=== PATIENT | female | born 1975 | race Caucasian/White ===

== ENCOUNTER 2020-11-29 10:17 | Day surgery (SDC) | payer OTHER ==
[~2020-11-29] VITALS: Ht 147.3 cm; Wt 55.9 kg
[2020-11-29] MEDS ORDERED: EPINEPHRINE 1 MG/ML, 1ML ONE ×2 (10:19→10:32)
[2020-11-29] MEDS ORDERED: BUPIVACAINE/PF 0.5% ONE ×2 (10:19→10:32)
[2020-11-29] MEDS ORDERED: SILVER SULF. CRM 1% , 25GM ONE ×2 (10:19→10:31)
[2020-11-29] MEDS ORDERED: LIDOCAINE JELLY 2%, 30GM ONE (10:20)
[2020-11-29] MEDS ORDERED: CHLORHEXIDINE 15 ML UDC ONE (10:39)
[2020-11-29 10:40] VITALS: BP 112/77
[2020-11-29 10:52] LABS: HCG UR SG 1.015 (1.003-1.030)
[2020-11-29] MEDS ORDERED: MIDAZOLAM 1 MG/ML, 2ML ONE (10:55)
[2020-11-29] MEDS ORDERED: FENTANYL PF 250 MCG/5ML ONE (10:58)
[2020-11-29] MEDS ORDERED: PROPOFOL 10 MG/ML, 20ML ONE (10:58)
[2020-11-29] MEDS ORDERED: SUCCINYLCHOLINE 20 MG/ML, 10ML ONE (10:59)
[2020-11-29] MEDS ORDERED: LACTATED RINGERS 1,000 ML IV SCH (11:00)
[2020-11-29] MEDS ORDERED: CHLORHEXIDINE 15 ML UDC PO ONE (11:00)
[2020-11-29] MEDS ORDERED: ONDANSETRON 2MG/ML, 2ML ONE (11:52)
[2020-11-29] MEDS ORDERED: DEXAMETHASONE 4 MG/ML, 1ML ONE (11:52)
[2020-11-29] MEDS ORDERED: CEFOTETAN 2 GM ONE (11:52)
[2020-11-29] MEDS ORDERED: ROCURONIUM 10 MG/ML,10ML ONE (11:52)
[2020-11-29] MEDS ORDERED: OXYC1TAB14 PO (12:26)
[2020-11-29] MEDS ORDERED: FENTANYL PF 100 MCG/2ML ONE (12:51)
[2020-11-29] MEDS ORDERED: OXYcodone 5 MG/5 ML ORAL.SOL UDC ONE (12:51)
[2020-11-29] MEDS ORDERED: ACETAMINOPHEN 650 MG/20.3 ML UDC ONE (12:51)
[2020-11-29] MEDS ORDERED: DIAZEPAM 5 MG/ML, 2ML IVPush PRN (13:00)
[2020-11-29] MEDS ORDERED: FENTANYL PF 100 MCG/2ML IV PRN (13:00)
[2020-11-29] MEDS ORDERED: LABETALOL 5MG/ML, 20ML IV PRN (13:00)
[2020-11-29] MEDS ORDERED: hydrALAzine 20 MG/ML, 1ML IV PRN (13:00)
[2020-11-29] MEDS ORDERED: EPHEDRINE 50 MG/ML, 1ML IVPush PRN (13:00)
[2020-11-29] MEDS ORDERED: ONDANSETRON 2MG/ML, 2ML IVPush PRN (13:00)
[2020-11-29] MEDS ORDERED: HYDROmorphone 1 MG/ML, 1ML INJ IVPush PRN (13:00)
[2020-11-29] MEDS ORDERED: PROMETHAZINE 12.5 MG SUPP PR PRN (13:00)
[2020-11-29] MEDS ORDERED: MIDAZOLAM 1 MG/ML, 2ML IV PRN (13:00)
[2020-11-29] MEDS ORDERED: ALBUTEROL SULFATE 2.5 MG/3 ML NPPB PRN (13:00)
[2020-11-29] MEDS ORDERED: LORazepam 2 MG/ML, 1ML IVPush PRN (13:00)
[2020-11-29] MEDS ORDERED: DIPHENHYDRAMINE 50 MG/ML, 1ML IVPush PRN ×2 (13:00)
[2020-11-29] MEDS ORDERED: OXYcodone 5 MG/5 ML ORAL.SOL UDC PO PRN (13:00)
[2020-11-29] MEDS ORDERED: PROMETHAZINE 25 MG/ML, 1ML IVPush PRN (13:00)
[2020-11-29] MEDS ORDERED: ACETAMINOPHEN 325 MG TABLET PO PRN (13:00)
[2020-11-29] MEDS ORDERED: MEPERIDINE/PF 25MG/0.5ML IVPush PRN (13:00)
[2020-11-29] MEDS ORDERED: MEPERIDINE/PF 25MG/ML,1ML ONE (13:18)
== END 2020-11-29 15:06 | disposition home or self-care (01) ==
LOC: OUT 10:17
PROVIDERS: ATTEND Surgery
DX: K64.1 Second degree hemorrhoids (principal); K64.4 Residual hemorrhoidal skin tags; Z79.899 Other long term (current) drug therapy
CPT/HCPCS: 46260; 81025; 88304; J0171; J0330; J1100; J2175; J2250; J2405; J2704; J3010; J7120